=== PATIENT | male | born 1935 | race African-American/Black ===

== ENCOUNTER 2020-04-21 12:28 | Emergency (ER) | payer OTHER ==
[~2020-04-21] VITALS: Ht 180.3 cm; Wt 75.0 kg
[2020-04-21 13:26] LABS: HEMATOCRIT. 29.8 % (42.0-52.0); HEMOGLOBIN. 9.3 g/dL (14.0-18.0); MEAN CORPUSCULAR HEMOGLOBIN 21.3 pg (28.0-32.0); MEAN CORPUSCULAR VOLUME 68.7 fL (80.0-94.0); MEAN PLATELET VOLUME 8.5 fl (7.4-10.4); PLATELET 174 x1000/uL (130-400); RED BLOOD CELL COUNT 4.34 mill/uL (4.7-6.1); RED CELL DISTRIBUTION WIDTH 17.9 % (11.6-14.6)
[2020-04-21 13:34] LABS: CHLORIDE 106 mEq/L (98-107)
[2020-04-21 13:41] LABS: BETA HYDROXYBUTYRATE 0.1 mMol/L (0.0-0.3)
[2020-04-21 13:58] LABS: PLATELET ESTIMATE NORMAL
[2020-04-21] MEDS ORDERED: DOPAMINE 400MG/250ML PREMIX 250 ML IV PRN ×2 (14:30→21:03)
[2020-04-21 16:22] LABS: T4 FREE 1.02 ng/dL (0.76-1.46)
[2020-04-21 16:24] LABS: CLARITY URINE CLEAR (CLEAR); COLOR URINE YELLOW (YELLOW); KETONES URINE NEGATIVE (NEGATIVE); LEUKOCYTE ESTERASE URINE 2+ (NEGATIVE); NITRITE URINE NEGATIVE (NEGATIVE); OCCULT BLOOD URINE 1+ (NEGATIVE); PH URINE 6.5 (4.5-8.0); PROTEIN URINE TRACE (NEGATIVE); SPECIFIC GRAVITY URINE 1.008 (1.005-1.030); UROBILINOGEN URINE 0.2 E.U./dL (0.2-1.0)
[2020-04-21 16:39] LABS: *AMPHETAMINES SCREEN URINE NEGATIVE (NEGATIVE)
[2020-04-21 16:41] LABS: *BARBITURATES SCREEN URINE NEGATIVE (NEGATIVE); *BENZODIAZEPINES SCREEN URINE NEGATIVE (NEGATIVE); *COCAINE SCREEN URINE NEGATIVE (NEGATIVE); METHADONE URINE SCREEN NEGATIVE (NEGATIVE); OPIATES URINE SCREEN NEGATIVE (NEGATIVE); PHENCYCLIDINE URINE SCREEN NEGATIVE (NEGATIVE)
[2020-04-21 16:42] LABS: CANNABINOID URINE SCREEN NEGATIVE (NEGATIVE)
[2020-04-21 20:20] VITALS: BP 178/90
[2020-04-21] MEDS ORDERED: ENOXAPARIN 80MG/0.8ML SYR SUBCUT SCH (21:15)
== END 2020-04-21 22:36 | disposition short-term general hospital (02) ==
LOC: ER 12:28 → CANBEDREQ 21:13 → ER 22:36
DX: R55 Syncope and collapse (principal); E78.00 Pure hypercholesterolemia, unspecified; I10 Essential (primary) hypertension; Z86.73 Personal history of transient ischemic attack (TIA), and cerebral infarction without residual deficits; Z87.891 Personal history of nicotine dependence
CPT/HCPCS: 36415; 70450; 71045; 80053; 80305; 81003; 82010; 82140; 83605; 83735; 83880; 84145; 84439; 84443; 84484; 85025; 87040; 87086; 93005; 96365; 96366; 96375; 99285; J1265; J1650